=== PATIENT | female | born 1945 | race African-American/Black ===

== ENCOUNTER 2022-02-23 18:28 | Observation (INO) ==
[2022-02-23 19:02] LABS: Basophils % 0.5 % (0.0-0.8); Eosinophils # 0.2 10*3/uL (0.0-0.87); Eosinophils % 3.1 % (0.00-10.9); Hematocrit 41.2 VOL% (35.7-47.0); Hemoglobin 13.5 GM/DL (12.0-16.0); Immature Granulocytes % 0.2 %; Immature Granulocytes Absolute 0.01 #; Lymphocytes # 2.6 10*3/uL (1.4-4.0); Lymphocytes % 41.8 % (21.3-54.2); Mean Corpuscular HGB Conc 32.8 GM/DL (32-36); Mean Corpuscular Volume 91.6 FL (87-102); Mean Platelet Volume 9.9 FL (9.6-12.0); Monocytes # 0.7 10*3/uL (0.11-0.8); Monocytes % 10.5 % (1.7-12.7); Neutrophils % 43.9 % (38.7-73.9); Platelet Count 379 T/CUMM (130-400); Red Cell Distribution Width 14.2 % (9.3-17.3); White Blood Count 6.2 T/CUMM (4-12)
[2022-02-23 19:22] LABS: Albumin 3.5 G/DL (3.4-5.0); Bilirubin,Total 0.5 MG/DL (0.20-1.00); Calcium 9.1 MG/DL (8.5-10.1); Osmolality,Calculated 287.1 MOS/KG (273-304); Potassium 3.8 MMOL/L (3.5-5.1); Total Protein 8.2 G/DL (6.4-8.2)
[2022-02-23] MEDS ORDERED: hydrALAZINE 20 MG/1 ML VIAL IV STA (19:46)
[2022-02-23] MEDS ORDERED: NITROGLYCERIN SL 0.4 MG TABLET SL STA (19:46)
[2022-02-23] MEDS ORDERED: DEXTROSE 10% 250 ML BAG IV PRN (20:33)
[2022-02-23] MEDS ORDERED: GLUCAGON 1 MG VIAL IM PRN (20:33)
[2022-02-23] MEDS ORDERED: ACETAMINOPHEN 325 MG TABLET PO PRN (20:40)
[2022-02-23] MEDS ORDERED: MORPHINE 2 MG/1 ML SYRINGE IV PRN (20:40)
[2022-02-23] MEDS ORDERED: ONDANSETRON 4 MG/2 ML VIAL IV PRN (20:40)
[2022-02-23] MEDS ORDERED: hydrALAZINE 20 MG/1 ML VIAL IV PRN (20:40)
[2022-02-23] MEDS ORDERED: ASPIRIN 325 MG TABLET PO STA (20:40)
[2022-02-24] MEDS: NITROGLYCERIN 2% OINT 1 INCH/GM PACK TOP SCH ×5 (01:34→23:42)
[2022-02-24 01:55] LABS: Calcium 9.5 MG/DL (8.5-10.1); Osmolality,Calculated 288.3 MOS/KG (273-304); Potassium 3.4 MMOL/L (3.5-5.1)
[2022-02-24] MEDS ORDERED: POTASSIUM CHLORIDE RIDER 10 MEQ/100 ML PREMIX IV PRN (07:22)
[2022-02-24] MEDS ORDERED: POTASSIUM CHLORIDE 20 MEQ TABLET PO ONE (07:32)
[2022-02-24 08:22] LABS: Bacteria,Urine Occasional /HPF (Few); Mucus,Urine Occasional /LPF (Occasional); RBC,Urine 1 /HPF (0-4); Squamous Epithelial Cell,Urine Occasional /HPF (0-10)
[2022-02-24 08:23] LABS: Bilirubin,Urine Negative (Negative); Blood, Urine Negative (Negative); Glucose,Urine (UA) Negative (Negative); Ketones,Urine Negative (Negative); Nitrite,Urine Negative (Negative); Protein,Urine Negative (Negative); Urine Appearance Clear (Clear); Urine Color Yellow (Yellow); Urine Specific Gravity 1.015 (1.001-1.035); Urine Urobilinogen 0.2 eU/dL (<2.0); Urine pH 5.5 (4.5-8.0)
[2022-02-24] MEDS ORDERED: hydrALAZINE 20 MG/1 ML VIAL IV ONE (09:01)
[2022-02-24] MEDS ORDERED: NITROGLYCERIN SL 0.4 MG TABLET SL PRN (09:32)
[2022-02-24] MEDS ORDERED: hydroCHLOROthiazide 25 MG TABLET PO SCH (10:00)
[2022-02-24] MEDS ORDERED: hydrALAZINE 25 MG TABLET PO SCH (10:00)
[2022-02-24] MEDS ORDERED: VALSARTAN 160 MG TABLET PO SCH (10:00)
[2022-02-24] MEDS: METOPROLOL SUCCINATE XL 50 MG TABLET PO SCH (10:12)
[2022-02-24] MEDS: PANTOPRAZOLE 40 MG TABLET PO SCH (10:12)
[2022-02-24] MEDS: VALSARTAN 160 MG TABLET PO SCH (10:13)
[2022-02-24] MEDS ORDERED: RIVAROXABAN 20 MG TABLET PO SCH (11:00)
[2022-02-24] MEDS ORDERED: hydrOXYzine HCL 25 MG TABLET PO ONE (11:04)
[2022-02-24] MEDS ORDERED: ATORVASTATIN 40 MG TABLET PO SCH (21:00)
[2022-02-25 04:36] LABS: Basophils % 0.4 % (0.0-0.8); Eosinophils # 0.2 10*3/uL (0.0-0.87); Hematocrit 44.3 VOL% (35.7-47.0); Hemoglobin 14.5 GM/DL (12.0-16.0); Immature Granulocytes % 0.3 %; Immature Granulocytes Absolute 0.02 #; Lymphocytes # 2.4 10*3/uL (1.4-4.0); Lymphocytes % 33.2 % (21.3-54.2); Mean Corpuscular HGB Conc 32.7 GM/DL (32-36); Mean Corpuscular Volume 91.9 FL (87-102); Mean Platelet Volume 10.6 FL (9.6-12.0); Monocytes # 0.7 10*3/uL (0.11-0.8); Neutrophils % 54.1 % (38.7-73.9); Platelet Count 368 T/CUMM (130-400); Red Blood Count 4.82 MC/CUMM (3.8-5.5); Red Cell Distribution Width 14.6 % (9.3-17.3); White Blood Count 7.3 T/CUMM (4-12)
[2022-02-25 05:00] LABS: Risk Ratio 2.21; VLDL Cholesterol 17.4 MG/DL
[2022-02-25] MEDS: NITROGLYCERIN 2% OINT 1 INCH/GM PACK TOP SCH ×2 (06:31→11:19)
[2022-02-25 06:44] LABS: Calcium 9.5 MG/DL (8.5-10.1); Osmolality,Calculated 283.3 MOS/KG (273-304); Potassium 4.4 MMOL/L (3.5-5.1)
[2022-02-25] MEDS: PANTOPRAZOLE 40 MG TABLET PO SCH (08:32)
[2022-02-25] MEDS: VALSARTAN 160 MG TABLET PO SCH (08:32)
[2022-02-25] MEDS: METOPROLOL SUCCINATE XL 50 MG TABLET PO SCH (08:32)
[2022-02-25] MEDS ORDERED: ASPIRIN EC 81 MG TABLET PO SCH (09:00)
[2022-02-25] MEDS ORDERED: hydrALAZINE 25 MG TABLET PO PRN (10:55)
[2022-02-25] MEDS ORDERED: SPIRONOLACTONE 25 MG TABLET PO SCH (11:00)
[2022-02-25 11:57] VITALS: BP 175/68
[2022-02-25] MEDS ORDERED: carvediloL 25 MG TABLET PO SCH (21:00)
== END 2022-02-25 11:57 | disposition home or self-care (01) ==
LOC: N.ED 18:28 → N.EDINP 18:28 → N.2W 23:07
PROVIDERS: ADMIT Family Medicine; ATTEND Family Medicine